=== PATIENT | male | born 1990 | race Caucasian/White ===

== ENCOUNTER 2017-09-03 07:25 | Emergency (ER) | payer SELFPAY ==
[~2017-09-03] VITALS: Ht 175.3 cm; Wt 77.1 kg
[~2017-09-03 07:25] MED LIST: BUTA1TAB46 PO; CEPH500C PO; CYCL10TA9 PO; DICL50TA4 PO; DIVA250T2 PO; HYDR-3714 PO; NAPR-1071 PO; Norflex PO
--- OUTSIDE RECORDS SUMMARY | 2017-09-03 07:33 | XMS REPORT ---
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
--- OUTSIDE RECORDS SUMMARY | 2017-09-03 07:33 | XMS REPORT ---
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
--- OUTSIDE RECORDS SUMMARY | 2017-09-03 07:33 | XMS REPORT ---
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 ALLERGIES No Information SOCIAL HISTORY Never Assessed PLAN OF CARE VITAL SIGNS Height 69 in 2016-11-12 Weight 148 lbs 2016-11-12 Heart Rate 60 bpm 2016-11-12 Respiratory Rate 16 2016-11-12 BMI 21.85 kg/m2 2016-11-12 Blood pressure systolic 110 mmHg 2016-11-12 Blood pressure diastolic 64 mmHg 2016-11-12 MEDICATIONS Medication Instructions Dosage Frequency Start Date End Date Duration Status Mirtazapine 15 MG Orally Once a day 1 tablet at bedtime 24h Nov, 30 day(s) Active Depakote 250 MG Orally 2 times a day 1 capsule 12h Nov, Active RESULTS No Results PROCEDURES No Known procedures IMMUNIZATIONS No Known Immunizations MEDICAL (GENERAL) HISTORY Type Description Date Medical History Seizures Medical History Right Eye Blind Medical History Broken Back Medical History Anxiety Medical History [facility]ization [facility] for [facility] attempt 2009
--- OUTSIDE RECORDS SUMMARY | 2017-09-03 07:33 | XMS REPORT ---
Author Author ADAM HACKETT [employer] Address Unknown Phone Unavailable Care Team Providers Care Respiratory Therapy Instructor Name Role Phone ADAM HACKETT CP Unavailable Allergies, Adverse Reactions, Alerts Substance Reaction Event Type N.K.D.A. 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 Problem Seizure disorder G40.909 Active Assessment Seizure disorder G40.909 Active Assessment Mood disorder F39 Active Problem Need for prophylactic vaccination and inoculation, Influenza V04.81 Active Assessment PTSD (post-traumatic stress disorder) 309.81 Active Medications Medication Code System Code Instructions Start Date End Date Status Dosage Risperdal [facility] [address]-20 0.5 MG Orally Once at bedtime Aug 01, 2015 1 tablet Depakote ER [facility] [address]-41 250 MG Orally 2 times a day in the morning and at bedtime Jul 14, 2014 1 tablet Procedures Procedure Coding System Code Date Office Visit, Est Pt., Level 5 CPT-4 67147 Aug 01, 2015 Vital Signs Date/Time: Aug 01, 2015 Temperature 97.8 F Weight 146.7 lbs Height 69 in BMI 21.66 Index Blood Pressure Diastolic 68 mmHg Blood Pressure Systolic 144 mmHg Cardiac Monitoring Heart Rate 72 bpm Results No Known Results Summary Purpose [employer]ClinicalWorks Submission
--- OUTSIDE RECORDS SUMMARY | 2017-09-03 07:34 | XMS REPORT ---
Author Author TANISHA CORONA [facility] e[employer] Address Unknown Phone Unavailable Care Team Providers Care Steel Placer Name Role Phone TANISHA CORONA CP Unavailable Allergies, Adverse Reactions, Alerts Substance Reaction Event Type N.K.D.A. 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 Problem Seizure disorder G40.909 Active Assessment Mood disorder F39 Active Problem Need for prophylactic vaccination and inoculation, Influenza V04.81 Active Assessment Seizure disorder G40.909 Active Medications Medication Code System Code Instructions Start Date End Date Status Dosage Depakote ER [facility] [address]-60 250 mg Jul 14, 2014 1 tablet by Oral route 1 time per day Procedures Procedure Coding System Code Date Office Visit, Est Pt., Level 4 CPT-4 56673 Aug 01, 2015 Vital Signs Date/Time: Aug 01, 2015 Temperature 97.8 F Weight 146.7 lbs Height 69 in BMI 21.66 Index Blood Pressure Diastolic 68 mmHg Blood Pressure Systolic 144 mmHg Cardiac Monitoring Heart Rate 72 bpm Results No Known Results Summary Purpose [employer]ClinicalWorks Submission
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
[2017-09-03] MEDS ORDERED: LIDOCAINE 1% INJ 50 ML (XYLOCAINE) VIAL IJ ONE (07:45)
--- NOTE | 2017-09-03 08:11 | Diagnostic Imaging Report ---
INDICATION: Pain status post injury. COMPARISON: None. FINDINGS: 3 views of the left wrist demonstrate no acute fracture or dislocation. There are no focal osseous lesions. No avascular necrosis is seen. The visualized soft tissue structures are unremarkable. The pronator fat pad is not displaced. There are no radio opaque foreign bodies. IMPRESSION: No acute fracture or dislocation in the left wrist. Dictated by: Dictated on workstation # [id number]
--- NOTE | 2017-09-03 08:14 | Diagnostic Imaging Report ---
3 views of the left hand. INDICATION: Injury. FINDINGS: There is no fracture, dislocation, or radiopaque foreign body. The joint alignment is satisfactory. There is incomplete extension of the interphalangeal joints, however, seen on this exam. IMPRESSION: Unremarkable exam. Dictated by: Dictated on workstation # [id number]
--- NOTE | 2017-09-03 08:20 | ED Upper Extremity ---
General Chief Complaint: Upper Extremity Stated Complaint: LACERATION TO LEFT HAND Nursing Triage Note: PT AMBULATES TO ROOM 3 CO OF LAC AND SMASHED R HAND LAST PM AT 1900 BY WOOD STOVE, PT HAS APPROX 4-5CM LAC TO TOP OF R HAND. PT STATES HAS BEEN OUTSIDE IN GARAGE TYPE HOUSING ALL NITE Nursing Sepsis Screen: No Definite Risk Source: patient Exam Limitations: no limitations Allergies and Home Medications Allergies Coded Allergies: No Known Drug Allergies (Unverified , 05/09/12) Home Medications Divalproex Sodium 250 Mg Tablet.dr, 250 MG PO DAILY, (Reported) Past Uwitonm-Thoubq-Agwqiy Hx Patient Social History Alcohol Use: Denies Use Recreational Drug Use: No (denied by girlfriend ) Smoking Status: Current Everyday Smoker Type Used: Cigarettes Recent Foreign Travel: No Contact w/Someone Who Travel: No Recent Infectious Disease Expo: No Recent Hopitalizations: No Physical Abuse: No Sexual Abuse: No Immunizations Up To Date Tetanus Booster (TDap): Less than 5yrs Seasonal Allergies Seasonal Allergies: No Surgeries History of Surgeries: Yes (EYE ) Respiratory History of Respiratory Disorde: No Cardiovascular History of Cardiac Disorders: No Neurological History of Neurological Disord: Yes Neurological Disorders: Seizure Disorder Gastrointestinal History of Gastrointestinal Di: No Musculoskeletal History of Musculoskeletal Dis: No Endocrine History of Endocrine Disorders: No HEENT Loss of Vision: Right Cancer History of Cancer: No Psychosocial Suicide Risk Score: 0 Family Medical History Family Medial History: Diabetes mellitus Physical Exam Vital Signs Vital Sign - Last 12Hours 09/03/17 07:30 Temp 98.4 Pulse 119 Resp 18 B/P (MAP) 135/96 (109) Pulse Ox 100 Capillary Refill : Less Than 3 Seconds Progress/Results/Core Measures Results/Orders My Orders Orders - RUDDY SHELBY MD Lidocaine 1% (Xylocaine 1%) (09/03/17 07:45) Wrist, Left, 3 Views Or More (09/03/17 07:40) Hand, Left, 3 Views (09/03/17 07:55) General/Regular (09/03/17 Lunch) Sulfamethoxazole/Trimet Ds Tab (Bactrim (09/03/17 08:45) Ibuprofen Tablet (Motrin Tablet) (09/03/17 08:45) Acetaminophen Tablet (Tylenol Tablet) (09/03/17 08:45) Medications Given in ED Current Medications Medications Dose Ordered Sig/Thor Route Start Time Stop Time Status Last Admin Dose Admin Lidocaine HCl 50 ml ONCE ONCE IJ 09/03/17 07:45 09/03/17 07:46 DC 09/03/17 07:50 50 ML Vital Signs/I&O Vital Sign - Last 12Hours 09/03/17 07:30 Temp 98.4 Pulse 119 Resp 18 B/P (MAP) 135/96 (109) Pulse Ox 100 Blood Pressure Mean: 109 Diagnostic Imaging Diagonstic Imaging: Xray Plain Films/CT/US/NM/MRI: hand Comments Left hand x-ray viewed by me and report reviewed. See report below: NAME: BLAIR BUSH MED REC#: [id number] PT STATUS: REG ER : 1990 PHYSICIAN: RUDDY SHELBY MD ADMIT DATE: 09/03/17/ER Signed Date of Exam: 09/03/17 HAND, LEFT, 3 VIEWS 3 views of the left hand. INDICATION: Injury. FINDINGS: There is no fracture, dislocation, or radiopaque foreign body. The joint alignment is satisfactory. There is incomplete extension of the interphalangeal joints, however, seen on this exam. IMPRESSION: Unremarkable exam. Dictated by: Dictated on workstation # [id number] Dict: 09/03/17809 Trans: 09/03/17813 Interpreted by: EDGAR PANDA MD Electronically signed by: EDGAR PANDA MD 09/03/17813 Diagonstic Imaging: Xray Plain Films/CT/US/NM/MRI: other (left wrist) Comments Left wrist x-ray viewed by me and report reviewed. See report below: NAME: BLAIR BUSH MED REC#: [id number] PT STATUS: REG ER : 1990 PHYSICIAN: RUDDY SHELBY MD ADMIT DATE: 09/03/17/ER Draft Date of Exam:09/03/17 WRIST, LEFT, 3 VIEWS OR MORE INDICATION: Pain status post injury. COMPARISON: None. FINDINGS: 3 views of the left wrist demonstrate no acute fracture or dislocation. There are no focal osseous lesions. No avascular necrosis is seen. The visualized soft tissue structures are unremarkable. The pronator fat pad is not displaced. There are no radio opaque foreign bodies. IMPRESSION: No acute fracture or dislocation in the left wrist. Dictated on workstation # [id number] Dict: 09/03/17808 Trans: 09/03/17810 [id number] Interpreted by: VY RIOJAS MD Departure Impression Impression: Primary Impression: Laceration of left hand Qualified Codes: S61.412A - Laceration without foreign body of left hand, initial encounter Additional Impression: Contusion of left hand Qualified Codes: S60.222A - Contusion of left hand, initial encounter Disposition: 01 HOME, SELF-CARE Condition: Improved Departure-Patient Inst. Decision time for Depature: 08:30 Referrals: [facility] (PCP/Family) Primary Care Physician Patient Instructions: Contusion (DC) Add. Discharge Instructions: Keep your wound clean and dry. Cover until it is scabbed over. You may wash your hands and shower, allowing soapy water to run over the wound. Do not scrub the wound. You may be followed by the wound care clinic at [facility]. You must fill out and return a financial counselor application before they will schedule an appointment. You may contact the wound care clinic at [phone]. You can contact the [facility] social insurance administrator during business hours at [phone] if you need assistance with other resources. For pain take ibuprofen up to 600 mg every 6 hours as needed. Add Tylenol ( acetaminophen) disease up to 1000 mg every 6 hours as needed for additional pain relief. Your wound should be reassessed within 48 hours. If you're unable to be seen at the [facility] or the wound care clinic in that amount of time, please return to the emergency room for reassessment. Fill your prescription for the antibiotic as soon as possible and complete the entire course. Work on range of motion of your left hand. You may use the right hand to help stretch and flexed your fingers. If you are unable to extend your fingers or fully asphalt tamper your fingers within a few days, ask your doctor about referral to a hand surgeon in follow-up. You may have damage to the tendons of your hand that needs assessed by hand surgeon. All discharge instructions reviewed with patient and/or family. Voiced understanding. Scripts Sulfamethoxazole/Trimethoprim (Bactrim Ds Tablet) 1 Each Tablet 1 EACH PO BID, #20 TAB Prov: RUDDY SHELBY MD 09/03/17 RUDDY SHELBY MD Sep 03, 2017 08:20
[2017-09-03] MEDS ORDERED: TRIM/SULFAMETH 160/800 (SEPTRA DS) TAB PO ONE (08:45)
[2017-09-03] MEDS ORDERED: IBUPROFEN TABLET 200 MG TAB PO ONE (08:45)
[2017-09-03] MEDS ORDERED: SULF1TAB35 PO (08:45)
[2017-09-03] MEDS ORDERED: ACETAMINOPHEN 500 MG TAB (TYLENOL) PO ONE (08:45)
[2017-09-03 09:04] VITALS: BP 135/96
== END 2017-09-03 09:04 | disposition home or self-care (01) ==
LOC: EDUNIT# 07:25 → ER 07:29
DX: S61.412A Laceration without foreign body of left hand, initial encounter (principal); G40.909 Epilepsy, unspecified, not intractable, without status epilepticus; F17.210 Nicotine dependence, cigarettes, uncomplicated; W23.1XXA Caught, crushed, jammed, or pinched between stationary objects, initial encounter
CPT/HCPCS: 73110; 73130; 99283